=== PATIENT | female | born 1985 | race African-American/Black ===

== ENCOUNTER 2017-01-19 02:09 | Emergency (ER) | payer OTHER ==
[~2017-01-19] VITALS: Ht 165.1 cm; Wt 63.5 kg
--- NOTE | 2017-01-19 03:09 | PHYS DOC ---
General Chief Complaint: VAGINAL BLEEDING Stated Complaint: VAGINAL BLEEDING Time Seen by MD: 02:26 Source: patient Exam Limitations: no limitations Problems: History of Present Illness Initial Comments Pt is 31/F to ED c/o vaginal bleeding. Pt is LMP one week ago heavier and shorter duration than normal. Took home test two days ago which was positive, states she has had some vaginal bleeding tonight. No abdominal/low back/vaginal pain, bleeding reddish/ pink "not even gone thru a pad." Recently moved here monogamous no OB established here. Prior with no risks, no complications, term has 20mos child at home still occasionally breastfeeds. A positive blood type, no THOMSON/cp/palpitations/STI history/coagulopathy. Afebrile, 110/69, 68 bpm other than very mild vaginal bleeding denies symptoms. 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 history Para: 2 : 1 LMP (Females 10-50): last week Social History Smoker: non-smoker Alcohol: none Drugs: none Review of Systems Constitutional: denies chills, denies diaphoresis, denies fever, denies malaise Respiratory: denies cough, denies shortness of breath, denies wheezing Cardiovascular: denies chest pain, denies palpitations, denies syncope Gastrointestinal: denies abdominal pain, denies diarrhea, denies nausea, denies vomiting Genitourinary: see HPI, denies discharge, denies dysuria, denies frequency, denies pain Musculoskeletal: denies back pain, denies joint swelling, denies neck pain Psychiatric/Neurological: denies headache, denies numbness, denies paresthesia Hematologic/Lymphatic: denies blood clots, denies easy bleeding, denies easy bruising Physical Exam General Appearance: WD/WN, no apparent distress Eyes: bilateral eye normal inspection, bilateral eye PERRL, bilateral eye EOMI Ear, Nose, Throat: hearing grossly normal, normal ENT inspection Neck: non-tender, supple Respiratory: normal breath sounds, no respiratory distress Cardiovascular: normal peripheral pulses, regular rate, rhythm Gastrointestinal: normal bowel sounds, non tender, soft (pelvic deferred) Back: no CVA tenderness, no vertebral tenderness Extremities: non-tender, normal inspection Neurologic/Psychiatric: set up operator tool II-XII nml as tested, no motor/sensory deficits, alert, normal mood/affect, oriented x 3 Skin: normal color, warm/dry Orders, Labs, Meds 0359: Time in department 1h 51 min. HCG remains pending, pt will have prolonged ED course due to lab delay. Labs reassuring, +blood in urine I discussed findings, s/s to monitor, and indications to return. Discussed need for OB follow up whether or not she miscarries. Pt questions answered, she expressed agreement/understanding with treatment plan. Departure Time of Disposition: 04:23 Disposition: HOME, SELF-CARE Diagnosis: Threatened Miscarriage Condition: STABLE Patient Instructions: Medicines During , Threatened Miscarriage Additional Instructions: Please review the patient education materials given by ED staff. Rest, no strenuous activity. Pelvic rest as discussed. vitamins. You will need to follow up with an CHIEF ADMINISTRATIVE OFFICER specialist. Dr Nathaniel Mosley [id number] [facility] [address] call Saturday to schedule appointment. Return to ED with new or changing symptoms. CARTER VIDES DO Jan 19, 2017 03:09
[2017-01-19 03:25] LABS: BILIRUBIN,URINE NEG (NEG); CLARITY,URINE HAZY; COLOR,URINE YELLOW; GLUCOSE,URINE NEG (NEG); UROBILINOGEN,URINE 0.2 mg/dL (0.2 mg/dL)
[2017-01-19 03:26] LABS: BACTERIA,URINE FEW /HPF (0-FEW); BASO % 1 % (0-3); EOS # 0.1 x10^3/uL (0.0-0.7); EOS % 3 % (0-3); HEMATOCRIT 41.6 % (36.0-47.0); LYMPH % 43 % (24-48); MEAN CORPUSCULAR HEMOGLOBIN 30 pg (25-35); MEAN CORPUSCULAR HGB CONC 34 g/dL (31-37); MEAN CORPUSCULAR VOLUME 90 fL (79-100); MONO # 0.5 x10^3/uL (0.0-1.1); MONO % 11 % (0-9); NEUT % 43 % (31-73); NITRITE,URINE NEG (NEG); PLATELET COUNT 162 x10^3/uL (140-400); RED BLOOD COUNT 4.64 x10^6/uL (3.50-5.40); RED CELL DISTRIBUTION WIDTH 14.3 % (11.5-14.5); SQUAMOUS EPITHELIAL CELL,UR MANY /LPF; WBC,URINE OCC /HPF (0-4); WHITE BLOOD COUNT 4.7 x10^3/uL (4.0-11.0)
[2017-01-19 20:31] VITALS: BP 107/71
== END 2017-01-19 05:00 | disposition home or self-care (01) ==
LOC: ER 02:09
DX: O20.0 Threatened abortion (principal); Z3A.01 Less than 8 weeks gestation of pregnancy
CPT/HCPCS: 36415; 81001; 81025; 84702; 85025; 99284

== ENCOUNTER 2017-02-07 11:18 | Emergency (ER) | payer SELFPAY ==
[~2017-02-07] VITALS: Ht 167.6 cm; Wt 68.6 kg
[2017-02-07] MEDS ORDERED: IV NORMAL SALINE 1,000ML 1,000 ML IV SCH (11:48)
[2017-02-07 12:13] LABS: BASO % 0 % (0-3); EOS # 0.1 x10^3/uL (0.0-0.7); EOS % 1 % (0-3); HEMATOCRIT 39.3 % (36.0-47.0); HEMOGLOBIN 13.4 g/dL (12.0-15.5); LYMPH # 2.1 x10^3/uL (1.0-4.8); LYMPH % 31 % (24-48); MEAN CORPUSCULAR HEMOGLOBIN 30 pg (25-35); MEAN CORPUSCULAR HGB CONC 34 g/dL (31-37); MEAN CORPUSCULAR VOLUME 89 fL (79-100); MONO # 0.7 x10^3/uL (0.0-1.1); MONO % 10 % (0-9); NEUT # 3.8 x10^3uL (1.8-7.7); NEUT % 58 % (31-73); PLATELET COUNT 160 x10^3/uL (140-400); RED BLOOD COUNT 4.42 x10^6/uL (3.50-5.40); RED CELL DISTRIBUTION WIDTH 14.3 % (11.5-14.5); WHITE BLOOD COUNT 6.6 x10^3/uL (4.0-11.0)
[2017-02-07 12:14] LABS: BILIRUBIN,URINE NEG (NEG); CLARITY,URINE CLEAR; COLOR,URINE YELLOW; GLUCOSE,URINE NEG (NEG); NITRITE,URINE NEG (NEG); UROBILINOGEN,URINE 0.2 mg/dL (0.2 mg/dL)
[2017-02-07 12:15] LABS: BACTERIA,URINE FEW /HPF (0-FEW); SQUAMOUS EPITHELIAL CELL,UR FEW /LPF
[2017-02-07 12:22] LABS: CALCIUM 8.7 mg/dL (8.5-10.1); CREATININE 0.7 mg/dL (0.6-1.0); GFR 118.1; MAGNESIUM 1.8 mg/dL (1.8-2.4); POTASSIUM 3.5 mmol/L (3.5-5.1)
--- NOTE | 2017-02-07 12:27 | PHYS DOC ---
Past History Past Medical History: No Pertinent History Past Surgical History: No Surgical History Alcohol Use: None Drug Use: None Adult General Chief Complaint Chief Complaint: ABDOMINAL PAIN IN [facility] HPI Patient is a 31 year old female who presents with complaint of abdominal pain. The patient is approximately 4 weeks . Last menstrual period was January 13, 2017. Patient was seen on January 19, 2017 where she had a confirmed positive test. Patient states that she had been having heavy bleeding prior to that visit. Patient states since that visit she has had intermittent spotting on a daily basis. Patient does admit that she had spotting earlier today. Patient states that she is not currently having any bleeding but is having lower abdominal cramping and pressure pain. Patient has mild nausea but denies vomiting. The patient states that she has not had any care but states that she is planning to see Dr. Mosley at [facility] for her care. Patient currently rates her pain as 7 out of 10. Patient denies radiation of pain. Patient has not taken any medication for her symptoms at this time. Review of Systems Review of Systems Constitutional: Denies fever or chills [] Eyes: Denies change in visual acuity, redness, or eye pain [] HENT: Denies nasal congestion or sore throat [] Respiratory: Denies cough or shortness of breath [] Cardiovascular: No additional information not addressed in HPI [] GI: Denies abdominal pain, nausea, vomiting, bloody stools or diarrhea [] : Pelvic pain, intermittent vaginal bleeding, denies dysuria or hematuria[] Musculoskeletal: Denies back pain or joint pain [] Integument: Denies rash or skin lesions [] Neurologic: Denies headache, focal weakness or sensory changes [] Current Medications Current Medications Current Medications Medications (Trade) Dose Ordered Sig/[facility] Start Time Stop Time Status Last Admin Dose Admin Sodium Chloride 1,000 ml @ 1,000 mls/hr Q1H 02/07/17 11:48 02/07/17 12:47 Allergies Allergies Allergies Coded Allergies Type Severity Reaction Last Updated Verified No Known Drug Allergies 01/19/17 No Physical Exam Physical Exam Constitutional: Alert, afebrile, appears in mild discomfort. [] HENT: Normocephalic, atraumatic, bilateral external ears normal, oropharynx moist, no oral exudates, nose normal. [] Eyes: PERRLA, EOMI, conjunctiva normal, no discharge. [] Neck: Normal range of motion, no tenderness, supple, no stridor. [] Cardiovascular:Heart rate regular rhythm, no murmur [] Lungs & Thorax: Bilateral breath sounds clear to auscultation [] Abdomen: Bowel sounds normal, soft, no tenderness, no masses, no pulsatile masses. [] Skin: Warm, dry, no erythema, no rash. [] Back: No tenderness, no CVA tenderness. [] Extremities: No tenderness, no cyanosis, no clubbing, ROM intact, no edema. [] Neurologic: Alert and oriented X 3, normal motor function, normal sensory function, no focal deficits noted. [] Current Patient Data Vital Signs Vital Signs Date Time Temp Pulse Resp B/P (MAP) Pulse Ox O2 Delivery O2 Flow Rate FiO2 02/07/17 11:29 97.7 74 20 97 Room Air Lab Results Laboratory Tests Test 02/07/17 11:37 02/07/17 12:00 02/07/17 12:01 Urine Collection Type Unknown Urine Color Yellow Urine Clarity Clear Urine pH 7.0 Urine Specific [place] 1.020 Urine Protein Neg (NEG-TRACE) Urine Glucose (UA) Neg mg/dL (NEG) Urine Ketones (Stick) Neg mg/dL (NEG) Urine Blood Small (NEG) Urine Nitrite Neg (NEG) Urine Bilirubin Neg (NEG) Urine Urobilinogen Dipstick 0.2 mg/dL (0.2 mg/dL) Urine Leukocyte Esterase Neg (NEG) Urine RBC 3-5 /HPF (0-2) Urine WBC 1-4 /HPF (0-4) Urine Squamous Epithelial Cells Few /LPF Urine Bacteria Few /HPF (0-FEW) Urine Mucus Mod /LPF White Blood Count 6.6 x10^3/uL (4.0-11.0) Red Blood Count 4.42 x10^6/uL (3.50-5.40) Hemoglobin 13.4 g/dL (12.0-15.5) Hematocrit 39.3 % (36.0-47.0) Mean Corpuscular Volume 89 fL (79-100) Mean Corpuscular Hemoglobin 30 pg (25-35) Mean Corpuscular Hemoglobin Concent 34 g/dL (31-37) Red Cell Distribution Width 14.3 % (11.5-14.5) Platelet Count 160 x10^3/uL (140-400) Neutrophils (%) (Auto) 58 % (31-73) Lymphocytes (%) (Auto) 31 % (24-48) Monocytes (%) (Auto) 10 % (0-9) H Eosinophils (%) (Auto) 1 % (0-3) Basophils (%) (Auto) 0 % (0-3) Neutrophils # (Auto) 3.8 x10^3uL (1.8-7.7) Lymphocytes # (Auto) 2.1 x10^3/uL (1.0-4.8) Monocytes # (Auto) 0.7 x10^3/uL (0.0-1.1) Eosinophils # (Auto) 0.1 x10^3/uL (0.0-0.7) Basophils # (Auto) 0.0 x10^3/uL (0.0-0.2) Sodium Level 137 mmol/L (136-145) Potassium Level 3.5 mmol/L (3.5-5.1) Chloride Level 104 mmol/L (98-107) Carbon Dioxide Level 27 mmol/L (21-32) Anion Gap 6 (6-14) Blood Urea Nitrogen 11 mg/dL (7-20) Creatinine 0.7 mg/dL (0.6-1.0) Estimated GFR (Cockcroft-Gault) 118.1 Glucose Level 98 mg/dL (70-99) Calcium Level 8.7 mg/dL (8.5-10.1) Magnesium Level 1.8 mg/dL (1.8-2.4) POC Urine HCG, Qualitative hcg positive (Negative) EKG EKG Not performed[] Radiology/Procedures Radiology/Procedures [address] [address] IMAGING REPORT Signed PATIENT: JADE PETTY ACCOUNT: [id number] : 1985 LOCATION: ER AGE: 31 SEX: F EXAM STATUS: REG ER ORD. PHYSICIAN: REY VELAZQUEZ MD REASON: vaginal bleeding, approximate 4 weeks PROCEDURE: OB <14 WKS W/TV Examination: Ultrasound pelvis History: History of bleeding Comparison: None available Findings : The uterus measures 8.2 x 4.9 x 3.9 cm. There is complex appearing fluid identified in the cul-de-sac. The right ovary measures 5.3 x 4.2 x 5.1 cm. There is a complex appearing cystic structure with reticulation in the right ovary measuring 3.7 x 4.1 x 3.6 cm probably hemorrhagic cyst. The left ovary measures 4.7 x 4.8 x 2.4 cm. There is a small cystic cystic structure measuring 1.5 cm identified in the left ovary could be a follicle or cyst. Intrauterine gestational sac is not clearly identified. There is a tubular structure identified in the right adnexa containing echogenicity within could be clot in the right fallopian tube or artifact. Impression: 1. Intrauterine gestational sac is not identified. Differential includes very early , failed first trimester or ectopic . There is moderate amount of complex appearing fluid identified in the cul-de-sac could be blood. There is a tubular structure identified in the right adnexa containing echogenicity could be clot within the fallopian tube or artifactual. However ectopic cannot be completely excluded. Recommend correlation with serial quantitative beta-hCG levels and Close interval follow-up examination is recommended. 2. Hemorrhagic cyst right ovary measuring 4.1 cm. DICTATED AND SIGNED BY: TASHA HANCOCK MD DATE: 02/07/17 4101 CC: MARY SINGH MD; REY VELAZQUEZ MD ~ [] Course & Med Decision Making Course & Med Decision Making Pertinent Labs and Imaging studies reviewed. (See chart for details) Patient started on IV fluids in the emergency department. The patient's ultrasound imaging showed evidence of fluid collection in the cul-de-sac and abnormalities of the right fallopian tube concerning for possible ruptured ectopic . I spoke with Dr. Ibarra of [facility] at [facility]. He accepted patient for transfer for further evaluation and possible surgical intervention. Spoke with patient regarding plan of care and she was in agreement at time of disposition. Patient transferred to [facility] by EMS at 1500. Dragon Disclaimer Dragon Disclaimer This chart was dictated in whole or in part using Voice Recognition software in a busy, high-work load, and often noisy Emergency Department environment. It may contain unintended and wholly unrecognized errors or omissions. Departure Departure: Impression: Primary Impression: Ruptured ectopic Disposition: XFER SHT-TRM HOSP Condition: STABLE Referrals: MARY SINGH MD (PCP) REY VELAZQUEZ MD Feb 07, 2017 12:27
--- NOTE | 2017-02-07 13:40 | RAD ---
Examination: Ultrasound pelvis History: History of bleeding Comparison: None available Findings : The uterus measures 8.2 x 4.9 x 3.9 cm. There is complex appearing fluid identified in the cul-de-sac. The right ovary measures 5.3 x 4.2 x 5.1 cm. There is a complex appearing cystic structure with reticulation in the right ovary measuring 3.7 x 4.1 x 3.6 cm probably hemorrhagic cyst. The left ovary measures 4.7 x 4.8 x 2.4 cm. There is a small cystic cystic structure measuring 1.5 cm identified in the left ovary could be a follicle or cyst. Intrauterine gestational sac is not clearly identified. There is a tubular structure identified in the right adnexa containing echogenicity within could be clot in the right fallopian tube or artifact. Impression: 1. Intrauterine gestational sac is not identified. Differential includes very early , failed first trimester or ectopic . There is moderate amount of complex appearing fluid identified in the cul-de-sac could be blood. There is a tubular structure identified in the right adnexa containing echogenicity could be clot within the fallopian tube or artifactual. However ectopic cannot be completely excluded. Recommend correlation with serial quantitative beta-hCG levels and Close interval follow-up examination is recommended. 2. Hemorrhagic cyst right ovary measuring 4.1 cm.
[2017-02-07 14:29] VITALS: BP 133/87
[2017-02-08 14:10] LABS: CHLAMYDIA PROBE Negative (Negative)
== END 2017-02-07 14:55 | disposition short-term general hospital (02) ==
LOC: ER 11:18
DX: O00.90 Unspecified ectopic pregnancy without intrauterine pregnancy (principal); Z3A.01 Less than 8 weeks gestation of pregnancy
CPT/HCPCS: 36415; 76801; 76817; 80048; 81001; 81025; 83735; 84702; 85025; 87491; 87591; 96360; 99285-25; J7030

== ENCOUNTER → 2019-06-05 | Outpatient (CLI) | payer OTHER ==
[2019-06-05 08:43] LABS: BASO % 1 % (0-3); EOS # 0.1 x10^3/uL (0.0-0.7); EOS % 2 % (0-3); HEMATOCRIT 40.8 % (36.0-47.0); HEMOGLOBIN 13.4 g/dL (12.0-15.5); LYMPH # 1.6 x10^3/uL (1.0-4.8); LYMPH % 34 % (24-48); MEAN CORPUSCULAR HEMOGLOBIN 30 pg (25-35); MEAN CORPUSCULAR HGB CONC 33 g/dL (31-37); MEAN CORPUSCULAR VOLUME 91 fL (79-100); MONO # 0.6 x10^3/uL (0.0-1.1); MONO % 13 % (0-9); NEUT # 2.3 x10^3uL (1.8-7.7); NEUT % 50 % (31-73); PLATELET COUNT 178 x10^3/uL (140-400); RED BLOOD COUNT 4.51 x10^6/uL (3.50-5.40); RED CELL DISTRIBUTION WIDTH 14.1 % (11.5-14.5); WHITE BLOOD COUNT 4.7 x10^3/uL (4.0-11.0)
== END | disposition home or self-care (01) ==
LOC: LAB 08:24
PROVIDERS: ATTEND Obstetrics & Gynecology
DX: O20.0 Threatened abortion (principal)
CPT/HCPCS: 36415; 84144; 84702; 85025

== ENCOUNTER 2020-02-02 06:37 | Emergency (ER) | payer OTHER ==
[~2020-02-02] VITALS: Ht 167.6 cm; Wt 68.6 kg
[2020-02-02 06:37] VITALS: BP 133/87
[2020-02-02] MEDS ORDERED: HYDR-3165 PO (07:08)
[2020-02-02] MEDS ORDERED: AMOX1TAB61 PO (07:08)
--- NOTE | 2020-02-02 07:09 | PHYS DOC ---
Past History Past Medical History: No Pertinent History Past Surgical History: No Surgical History Alcohol Use: Occasionally Drug Use: None General Adult EDM: Chief Complaint: DENTAL PROBLEM HPI: HPI: 34-year-old female presents with left lower dental pain. She noticed that for the last 2 days she has had extreme sensitivity to her tooth. She can see that there is a small hole below one of her fillings. She states that there pain radiates up to around her left ear. She denies fever or chills. She worked overnight and took 600 ibuprofen without relief. She has been using Orajel which works sometimes and not others. It does not take away the pain around her ear. Review of Systems: Review of Systems: Constitutional: Denies fever or chills Eyes: Denies change in visual acuity HENT: Dental pain, left ear pain Respiratory: Denies cough or shortness of breath Cardiovascular: Denies chest pain or edema GI: Denies abdominal pain, nausea, vomiting, bloody stools or diarrhea : Denies dysuria Musculoskeletal: Denies back pain or joint pain Integument: Denies rash Neurologic: Denies headache, focal weakness or sensory changes Endocrine: Denies polyuria or polydipsia Lymphatic: Denies swollen glands Psychiatric: Denies depression or anxiety Allergies: Allergies: Allergies Coded Allergies Type Severity Reaction Last Updated Verified No Known Drug Allergies 01/19/17 No Physical Exam: PE: Constitutional: Well developed, well nourished, no acute distress, non-toxic appearance. [] HENT: Normocephalic, atraumatic, bilateral external ears normal, oropharynx moist, no oral exudates, nose normal. Left ear canal with evidence of otitis externa. Left ear drum dull. Tooth #18 with a filling and small hole below it. [] Eyes: PERRLA, EOMI, conjunctiva normal, no discharge. [] Neck: Normal range of motion, no tenderness, supple, no stridor. [] Cardiovascular: Heart rate regular rhythm, no murmur [] Lungs & Thorax: Bilateral breath sounds clear to auscultation [] Abdomen: Bowel sounds normal, soft, no tenderness, no masses, no pulsatile masses. [] Skin: Warm, dry, no erythema, no rash. [] Back: No tenderness, no CVA tenderness. [] Extremities: No tenderness, no cyanosis, no clubbing, ROM intact, no edema. [] Neurologic: Alert and oriented X 3, normal motor function, normal sensory function, no focal deficits noted. [] Psychologic: Affect normal, judgement normal, mood normal. [] Current Patient Data: Vital Signs: Vital Signs Date Time Temp Pulse Resp B/P (MAP) Pulse Ox O2 Delivery O2 Flow Rate FiO2 02/02/20 06:37 98.6 86 18 133/87 (102) 98 Room Air EKG: EKG: [] Radiology/Procedures: Radiology/Procedures: [] Heart Score: Risk Factors: Risk Factors: DM, Current or recent (<one month) smoker, HTN, HLP, family history of CAD, obesity. Risk Scores: Score 0 - 3: 2.5% MACE over next 6 weeks - Discharge Home Score 4 - 6: 20.3% MACE over next 6 weeks - Admit for Clinical Observation Score 7 - 10: 72.7% MACE over next 6 weeks - Early Invasive Strategies Course & Med Decision Making: Course & Med Decision Making Pertinent Labs and Imaging studies reviewed. (See chart for details) The patient does appear to have a small opening her tooth that is likely causing pain. She is scheduled to get this fixed on . Her exam also shows an early otitis externa of the left ear. I will treat her with oral antibiotics. I will also give her a prescription for [place] 5/325. She is stable for discharge at this time. [] Will Disclaimer: Will Disclaimer: This electronic medical record was generated, in whole or in part, using a voice recognition dictation system. Departure Departure: Impression: Primary Impression: Pain, dental Disposition: 01 DC HOME SELF CARE/HOMELESS Condition: STABLE Patient Instructions: Dental Pain, [id number] Scripts Hydrocodone Bit/Acetaminophen (NORCO 5-325 TABLET) 1 Each Tablet 1 TAB PO PRN Q6HRS PRN for PAIN, #14 TAB 0 Refills Prov: CHINEDU NEGRON DO 02/02/20 Amoxicillin/Potassium Clav (AUGMENTIN 875-125 TABLET) 1 Each Tablet 1 TAB PO BID for ear infection for 10 Days, #20 TAB 0 Refills Prov: CHINEDU NEGRON DO 02/02/20 CHINEDU NEGRON DO Feb 02, 2020 07:09
== END 2020-02-02 07:45 | disposition home or self-care (01) ==
LOC: ER 06:37
DX: K08.89 Other specified disorders of teeth and supporting structures (principal); H60.92 Unspecified otitis externa, left ear
CPT/HCPCS: 99283